=== PATIENT | female | born 1945 | race Caucasian/White ===

== ENCOUNTER 2021-03-05 15:25 | Emergency (ER) | payer OTHER ==
[~2021-03-05] VITALS: Ht 162.6 cm; Wt 101.2 kg
[2021-03-05 15:57] LABS: HEMOGLOBIN 13.3 gm/dL (12.0-15.0); MCH 27.1 pg (26.0-34.0); MCHC 32.4 g/dL (28.0-37.0); MCV 83.5 fL (80.0-100.0); RBC 4.91 mil/uL (4.20-5.00); RDW 14.6 % (10.5-14.5); WBC 10.2 thou/uL (4.0-11.0)
[2021-03-05 16:20] LABS: CALCIUM 9.8 mg/dL (8.5-10.1); CREATININE 1.3 mg/dL (0.6-1.0)
[2021-03-05 16:26] LABS: ALBUMIN 2.9 g/dL (3.4-5.0); TOTAL BILIRUBIN 0.3 mg/dL (0.2-1.0); TOTAL PROTEIN 8.1 g/dL (6.4-8.2)
[2021-03-05 18:19] LABS: URINE BILIRUBIN NEGATIVE (Negative); URINE BLOOD NEGATIVE (Negative); URINE CLARITY SL CLOUDY; URINE COLOR YELLOW; URINE GLUCOSE-RANDOM* NEGATIVE (Negative); URINE KETONES NEGATIVE (Negative); URINE NITRITE-REFLEX NEGATIVE (Negative); URINE PROTEIN (DIPSTICK) NEGATIVE (Negative); URINE UROBILINOGEN 0.2 E.U./dl (0.2-1.0)
[2021-03-05 18:35] LABS: AMP/METHAMP Negative (Negative); BARBITURATES Negative (Negative); BENZODIAZEPINES Negative (Negative); COCAINE Negative (Negative); METHADONE Negative (Negative); OPIATES POSITIVE (Negative); PCP Negative (Negative)
[2021-03-05 18:39] LABS: URINE LEUKOCYTES-REFLEX 2+ (Negative)
[2021-03-05 18:53] LABS: CASTS None Seen /LPF (None Seen); HYALINE CASTS 0-3 Few /LPF (None Seen); SQUAMOUS 0-3 Few /LPF (0-3); URINE RBC 1-2 Rare /HPF (NONE SEEN)
[2021-03-05 18:54] LABS: BACTERIA-REFLEX >30 Many /HPF (None Seen); CRYSTALS None Seen /LPF (None Seen)
[2021-03-05] MEDS ORDERED: ASPERCREME1 EACH TOP (19:22)
[2021-03-05] MEDS ORDERED: PROBIOTIC1 EAC7 PO (19:22)
[2021-03-05] MEDS ORDERED: ASA81BEC PO (19:22)
[2021-03-05] MEDS ORDERED: BIOFREEZE118 ML TOP (19:23)
[2021-03-05] MEDS ORDERED: LASIX 40 MG TAB40 MG PO (19:24)
[2021-03-05] MEDS ORDERED: FAMOTIDINE 20 M20 MG PO (19:24)
[2021-03-05] MEDS ORDERED: CALCIUM-VITAMI1 EACH PO (19:24)
[2021-03-05] MEDS ORDERED: FLONASE 0.05%50 MCG NARES (19:24)
[2021-03-05] MEDS ORDERED: NORCO 10-325 T1 EACH PO (19:25)
[2021-03-05] MEDS ORDERED: NIZORAL A-D125 ML TOP (19:25)
[2021-03-05] MEDS ORDERED: NEURONTIN 300M300 M2 PO (19:25)
[2021-03-05] MEDS ORDERED: LEVEMIR100 UNIT/1 SUBQ (19:26)
[2021-03-05] MEDS ORDERED: MAGNESIUM400 MG PO (19:26)
[2021-03-05] MEDS ORDERED: TOPROL XL25 MG PO (19:27)
[2021-03-05] MEDS ORDERED: METFORMIN HCL500 M3 PO (19:27)
[2021-03-05] MEDS ORDERED: MAPAP325 MG PO (19:27)
[2021-03-05] MEDS ORDERED: NAC600 MG PO (19:28)
[2021-03-05] MEDS ORDERED: NATEGLINIDE120 MG PO (19:28)
[2021-03-05] MEDS ORDERED: MOMETASONE FUROA1 GM TOP (19:28)
[2021-03-05] MEDS ORDERED: EFFER-K 20 MEQ20 ME1 PO (19:29)
[2021-03-05] MEDS ORDERED: PROAIR HFA8.5 GM INH (19:29)
[2021-03-05] MEDS ORDERED: PATADAY2.5 ML EA. EYE (19:29)
[2021-03-05] MEDS ORDERED: SENNA8.6 MG PO (19:29)
[2021-03-05] MEDS ORDERED: VENLAFAXINE HCL25 MG PO (19:30)
[2021-03-05 20:44] VITALS: BP 137/71
[2021-03-06] MEDS ORDERED: VENLAFAXINE H37.5 MG PO (00:37)
[2021-03-06] MEDS ORDERED: VENLAFAXINE HCL75 MG PO (00:37)
[2021-03-06] MEDS ORDERED: ASPERCREME LIDO73 ML TOP ×2 (01:02→01:03)
[2021-03-06] MEDS ORDERED: CALCIUM 600 +1 EAC7 PO (01:06)
[2021-03-06] MEDS ORDERED: FLONASE 0.05%50 MCG NASAL (01:07)
[2021-03-06] MEDS ORDERED: ACETAMINOPHEN650 M5 PO (01:15)
[2021-03-06] MEDS ORDERED: KLOR-CON M2020 MEQ PO (01:20)
--- NOTE | 2021-03-06 07:10 | EKG ---
[facility] [place] [address] ELECTROCARDIOGRAM REPORT Name: CELENA REYES [id number] Admission: 03/05/21 Attend Phys: Discharge: 03/05/21 Date of : 47 Report #: [id number] [facility] ED Test Date: 2021-03-05 Test Time: 16:17:19 Pat Name: CELENA REYES Department: Room: Gender: F Right Of Way Manager: STEPHANIE : 1945 Requested By: David Carter Order Number: [id number] MD: Ethan Mustafa Measurements Intervals [place] Rate: 79 P: 5 TX: 157 QRS: -33 QRSD: 92 T: 31 QT: 368 QTc: 422 Interpretive Statements Sinus rhythm Low voltage, precordial leads Probable left ventricular hypertrophy Anterior Q waves, possibly due to LVH No previous ECG available for comparison Electronically Signed On 03-06-2021 7:10:23 COMPLEX CARE NURSE by Ethan Mustafa [email or web address] <ELECTRONICALLY SIGNED> By: Ethan Mustafa MD, [facility] 03/06/21 0710 1617 1617 Ethan Mustafa MD, FACC /EPI
== END 2021-03-05 20:49 ==
LOC: ER 15:25
PROVIDERS: Emergency Medicine
DX: F91.9 Conduct disorder, unspecified (principal); Z20.822 Contact with and (suspected) exposure to COVID-19; N39.0 Urinary tract infection, site not specified; Z79.82 Long term (current) use of aspirin; Z79.4 Long term (current) use of insulin; Z79.51 Long term (current) use of inhaled steroids; Z79.1 Long term (current) use of non-steroidal anti-inflammatories (NSAID); Z79.891 Long term (current) use of opiate analgesic; Z79.899 Other long term (current) drug therapy

== ENCOUNTER 2021-03-05 16:29 | Inpatient (IN) | payer OTHER ==
[~2021-03-05] VITALS: Ht 162.6 cm; Wt 229.4 kg
--- NOTE | ~2021-03-05 | D ---
[facility] [place] [address] [address] DISCHARGE SUMMARY Name: CELENA REYES Room #: 526B-B DIS IN M.R.#: [id number] Admission: 03/05/21 Attend Phys: Chuck Heaton DO Discharge: 03/11/21 Date of : 47 Report #: [id number] THIS REPORT FOR: cc: MICHELLE - Family physician unknown FAM - Family physician unknown Chuck Heaton DO ~ DATE OF SERVICE: 03/11/2021 INPATIENT PSYCHIATRIC DISCHARGE SUMMARY ATTENDING PSYCHIATRIST: Chuck Heaton DO PAINTING DEPARTMENT SUPERVISOR: Chuck Atwood MD DISCHARGE DIAGNOSES: Unspecified psychosis, resolved, probably due to Escherichia coli ESBL urinary tract infection. Major depressive disorder, unspecified, on low-dose venlafaxine b.i.d. Medical comorbidities include ____ UTI, low TSH, normal free T3, free T4, euthyroid sick syndrome, recommendations to periodically monitor TSH, CKD, baseline creatinine 1.3, hypertension, hyperlipidemia, history of congestive heart failure, lower extremity lymphedema, diabetes mellitus type 2 on Lantus, chronic pain syndrome, morbid obesity. The patient is discharging to [facility] in [place], [place]. Psychiatric and medical care per receiving facility. Recommend diabetic 1800 calorie diet. Ambulates with walker. Blood glucoses twice daily. ACTIVITY LEVEL: As tolerated. DISCHARGE MEDICATIONS: Medications prescribed at discharge, which I went over with staff in nursing facility: Aspirin 81 mg oral daily for heart protection, famotidine 10 mg oral twice daily for gastroesophageal reflux disease, Lasix 40 mg oral daily for edema and mild congestive heart failure, gabapentin 300 mg oral 3 times a day for neuropathic pain, Levemir or Lantus 8 units subcutaneous at bedtime, metoprolol succinate 12.5 mg oral daily for heart rate and blood pressure, albuterol sulfate ____ grams HFA 2 puffs inhalation q. 6 hours p.r.n. for wheezing, senna 8.6 mg oral daily for constipation, calcium carbonate with vitamin D3 one tablet oral daily for supplementation, Flonase 1 spray each nostril twice daily, amoxicillin-clavulanate 875-125 one tablet oral twice daily for 7 more days for ESBL E. coli infection, venlafaxine 25 mg oral twice daily for history of depression, magnesium oxide 40 mg oral daily for supplementation, lactobacillus acidophilus 2 tablets oral daily at 0900 ____ antibiotic for bowel health. LABORATORY DATA: Significant laboratories on this admission. Hematology: White count 10.2, H and H of 13.3 and 41.0, platelet count 325. Chemistry: Sodium 138, potassium 3.4, chloride 99, bicarbonate 26, anion gap 13, BUN 19, [address] [address] DISCHARGE SUMMARY Name: CELENA REYES Room #: 526B-B DIS IN M.R.#: [id number] Admission: 03/05/21 Attend Phys: Chuck Heaton DO Discharge: 03/11/21 Date of : 47 Report #: [id number] creatinine 1.1. This is 03/06 labs. Estimated GFR 49, glucose 125. A1c 6.4, calcium 9.8, total bilirubin 0.3, AST 20, ALT 29, alkaline phosphatase 72, total protein 8.1, albumin 2.8. Serum appearance is clear. Triglycerides 151, cholesterol 228, LDL 163, HDL 35. TSH low at 0.245. Free T4 of 1.4, free T3 of 3.08. Urinalysis had multiple positives including bacteria, hyaline casts, white blood cell count, leukocyte esterase of 2+ and coarse bacteria. Toxicology positive for opiates. COVID-19 serology was negative on the , and by PCR. Microbiology showed ESBL E. coli that was sensitive to Augmentin, which she is treated with during the stay and will be continued at discharge. Her initial day of treatment in the hospital was from the , so she should get 10 days total. REASON FOR ADMISSION: Back on 03/05, a 75-year-old obese female sent out from ____ [facility] in [place]. Apparently, she was having hallucinations regarding seeing her who had a few years ago, recently worsened on 02/26. She was switched from Haldol to Seroquel, still seeing worms and bugs and rodents at times. HOSPITAL COURSE: The patient was admitted to Geriatric Psychiatry Unit. She was started on Risperdal 0.5 t.i.d. It was reduced later to 0.5 b.i.d. Psychosis rapidly improved. The patient had no specific concerns, a bit reclusive to room without suicidal or homicidal, on day of discharge felt to be stable. PHYSICAL EXAMINATION: VITAL SIGNS: Temperature 36.2, pulse 82, respirations ____, BP ____, O2 sat 95%. MUSCULOSKELETAL: Assisted gait, kyphotic station, large habitus female. MENTAL STATUS EXAMINATION: This is a well-developed, somewhat ill-appearing female appearing older than stated age. Attention fair. Concentration limited. Speech normal in rate and tone. Thought process: Linear and goal directed. Thought content, focused on discharge. Denied suicidal or homicidal ideation, denied auditory or visual type hallucinations. Mood okay. Affect, congruent, euthymic, fair range. Insight and judgment fair. Fund of knowledge average. It should be noted I did speak with her son during the admission. He is aware of the long-term care needs. PROGNOSIS: For this patient is guarded given age of 75 and numerous medical comorbidities. She should have psychiatric followup with assisted. By: 10 00 Chuck Heaton, DO /nt
[2021-03-05] MEDS ORDERED: ASPERCREME1 EACH TOP (19:22)
[2021-03-05] MEDS ORDERED: PROBIOTIC1 EAC7 PO (19:22)
[2021-03-05] MEDS ORDERED: ASA81BEC PO (19:22)
[2021-03-05] MEDS ORDERED: BIOFREEZE118 ML TOP (19:23)
[2021-03-05] MEDS ORDERED: LASIX 40 MG TAB40 MG PO (19:24)
[2021-03-05] MEDS ORDERED: FLONASE 0.05%50 MCG NARES (19:24)
[2021-03-05] MEDS ORDERED: FAMOTIDINE 20 M20 MG PO (19:24)
[2021-03-05] MEDS ORDERED: CALCIUM-VITAMI1 EACH PO (19:24)
[2021-03-05] MEDS ORDERED: NORCO 10-325 T1 EACH PO (19:25)
[2021-03-05] MEDS ORDERED: NEURONTIN 300M300 M2 PO (19:25)
[2021-03-05] MEDS ORDERED: NIZORAL A-D125 ML TOP (19:25)
[2021-03-05] MEDS ORDERED: MAGNESIUM400 MG PO (19:26)
[2021-03-05] MEDS ORDERED: LEVEMIR100 UNIT/1 SUBQ (19:26)
[2021-03-05] MEDS ORDERED: METFORMIN HCL500 M3 PO (19:27)
[2021-03-05] MEDS ORDERED: MAPAP325 MG PO (19:27)
[2021-03-05] MEDS ORDERED: TOPROL XL25 MG PO (19:27)
[2021-03-05] MEDS ORDERED: NAC600 MG PO (19:28)
[2021-03-05] MEDS ORDERED: MOMETASONE FUROA1 GM TOP (19:28)
[2021-03-05] MEDS ORDERED: NATEGLINIDE120 MG PO (19:28)
[2021-03-05] MEDS ORDERED: EFFER-K 20 MEQ20 ME1 PO (19:29)
[2021-03-05] MEDS ORDERED: PROAIR HFA8.5 GM INH (19:29)
[2021-03-05] MEDS ORDERED: PATADAY2.5 ML EA. EYE (19:29)
[2021-03-05] MEDS ORDERED: SENNA8.6 MG PO (19:29)
[2021-03-05] MEDS ORDERED: VENLAFAXINE HCL25 MG PO (19:30)
[2021-03-06] MEDS ORDERED: VENLAFAXINE H37.5 MG PO (00:37)
[2021-03-06] MEDS ORDERED: VENLAFAXINE HCL75 MG PO (00:37)
--- NOTE | 2021-03-06 00:59 | NUR ---
Arrived on the [facility] floor in a W/C from [facility] @ 21:10 accompanied by x1 staff. Transferred to Bed 518B. Able to stand and pivot from W/C to bed with x1-2 assist. VS 99/60 80 18 97.1 98% SpO2 on room air. Weight 222.5 lbs and 5'4"height. FSBS 142. DNR and supporting documentation in chart. Ambulated to the toilet with x2 assist and was continent of urine. Wearing a brief which was dry upon toileting. Bruise on Left arm which she reports she fell out of bed 2 days ago at her facility. Bruise on the right hand which patient reports is from a lab draw. Small round red skin blemish on the forehead that patient reports is a skin growth that she has had and is not an injury. large bruise on her left forearm the length of the forearm that patient identifies as secondary to her fall 2 days ago. Also faded bruises on lower extremities bilat. A&Ox3, pleasant affect. Denies mental health history, however reports that she has experienced depression after the of her mother who passed in 2008, her who passed 5 years ago in 2015, and recently after a sister passed in January of 2021. Denies family history of Suicide, Denies personal suicide ideation, or homicidal ideation. Patient reports seeing pet cats (2) and one pet dog who are . Also sees bugs and spiders, both tactile hallucinations feeling them on her skin, in her nose, eyes and ears and seeing them in front of her.
[2021-03-06] MEDS ORDERED: ASPERCREME LIDO73 ML TOP ×2 (01:02→01:03)
[2021-03-06] MEDS ORDERED: CALCIUM 600 +1 EAC7 PO (01:06)
[2021-03-06] MEDS ORDERED: FLONASE 0.05%50 MCG NASAL (01:07)
[2021-03-06] MEDS ORDERED: ACETAMINOPHEN650 M5 PO (01:15)
[2021-03-06] MEDS ORDERED: KLOR-CON M2020 MEQ PO (01:20)
[2021-03-06 06:09] LABS: CHOLESTEROL 228 mg/dL (<200); HDL CHOLESTEROL 35 mg/dL (>40); LDL CHOLESTEROL 163 mg/dL (<100); TC:HDL 6.5 Ratio (Not establshd); TRIGLYCERIDE 151 mg/dL (<150); VLDL 30 mg/dL (<40)
[2021-03-06 06:14] LABS: SERUM ASSESSMENT Clear
[2021-03-06 07:17] LABS: CALCIUM 9.8 mg/dL (8.5-10.1); CREATININE 1.1 mg/dL (0.6-1.0); POTASSIUM 3.4 mmol/L (3.5-5.1)
--- NOTE | 2021-03-06 07:58 | NUR ---
03/06/21 6730 SPOKE TO SON, BOWEN REYES [phone] AND GAVE HIM THE CONFIDENTIAL CODE FOR HIS MOM. HE IS HER DPOA, PATIENT SIGNED HERSELF IN AND HE AGREED THAT THIS IS ACCPETABLE.
--- NOTE | 2021-03-06 09:22 | NUR ---
Nutrition: New admit [facility] with unspecified psychosis. Suffers from hallucinations. PMH: GERD, HTN, depression, CHF, DM2, HLD. BG 142. Chol 228, Triglycerides 151. New admit, intake records not available yet. No weight hx. BMI 38, obesity class 2. REC add heart healthy to diet order if po intakes > 75% of meals. Follow PO trends but place as low nutrition risk.
--- NOTE | 2021-03-06 14:47 | NUR ---
IN ROOM EATING BREAKFAST ON INITIAL APPROACH THIS AM-REPORTS POOR SLEEP LAST PM C/O HEARING BANGING FROM BACK DOOR CLOSING THROUGHOUT NIGHT. DESCRIBES MOOD "EXHAUSTED" AND DOES ENDORSE S/S OF DEPRESSION INCLUDING HOPLESSNESS,DECREASED MOTIVATION AND ENERGY AND ANHEDONIA.DENIES SI/SH/HI. DENIES VISUAL HALLUCINATIONS SO FAR THIS AM-BUT STATES "THEY GET WORSE AT NIGHT"DOES REPORT PAIN TO LEFT ANKLE LOWER EXTREMETY WHICH SHE IDENTIFIES SITE OF CHRONIC PAIN BUT HAS GOTTEN WORSE SINCE FALL ON LEFT SIDE SAT. RATES PAIN CURRENTLY A 4 OR 5TATING "IT GETS WORSE THE DAY GOES N TOO" REFUSES SCHEDULED TYLENOL 325 STAT[address] "MY DR HAD ME ON A PAIN PILL THREE TIMES A DAY AT THE ASSISTED LIVING-IT WAS WORKING REAL GOOD"UNABLE TO STATW NAME OF THIS MEDCINE "THE NURSES HELP ME WITH ALL OF THAT"WHEN
--- NOTE | 2021-03-06 15:00 | NUR ---
cont. CURRENT MEDS REVIWED WITH PT IDS NORCO PAIN MED GIVEN TID AT FACILITY AND IS REQUESTING THIS WITH AM MEDS-NORCO 10 GTVEN PO PRN AT 0900-IS NOTED TO HAVE LARGE BRUISE TO LEFT SHOULDER/FOREARM AND SLIGHT BRUISING TO LEFT CRISPIN-ANKLE NOTED RO SWOLLEN AND TENDER TO TOUCH. ASSISTED TO BR ROLLER WALKER AND SBA X1, DID RATE LEFT ANKLE OAIN A 0 UPON REASSEEMENT AT 1000.
[2021-03-06 19:41] VITALS: BP 115/53
--- NOTE | 2021-03-06 22:43 | NUR ---
At onset of shift boss pt was resting in bed awake. This shift pt was alert and oriented x4. Pt was compliant with medication and vital signs. Pt complained of pain in her feet and knees; recieved PRN hydrocodone at 2237. Affect was broad. Pt denied SI, HI, depression and anxiety. Pt stated she is in the hospital to have some medications removed from her list and because she has been seeing things. Pt denied having hallucinations today or this evening. Pt is a 2 person assist. Fall precautions are in place. Will continue to monitor.
[2021-03-07 01:06] LABS: GLYCOHEMOGLOBIN (HGB A1C) 6.4 % (4.8-5.6)
[2021-03-07 09:33] VITALS: BP 109/61
--- NOTE | 2021-03-07 12:22 | NUR ---
PATIENT CARE ASSUMED AT 0700, YAZMINNET IS ALERT AND ORIENTED X3, PATIENT LAYING IN BED AWAKE, CALM AND COOPERATIVE WITH CARE, PATIENT TOOK MEDICATION WHOLE, ACTIVE BOWEL SOFT WITH SOFT ABDOMEN, LUNG CLEAR, EDEMA NOTED AT LEG, SKIN INTACT, PATIENT IS A ONE TO TWO ASSIST, SHE COMPLAINED OF PAIN AND PRN MEDICATION WAS GIVEN, SHE IS ABLE TO VERBALIZE NEEDS, FALL PRECAUTION IN [place] DENIES SI/HI, PATIENT REMAIN IN THE ROOM ND DIDN'T WANT TO ATTEND OR SIT IN THE COMMON AREA, WILL CONTINUE TO MONITOR PATIENT FOR SAFETY. .
[2021-03-07 19:27] VITALS: BP 96/66
--- NOTE | 2021-03-07 20:50 | H ---
[facility] [place] [address] [address] HISTORY AND PHYSICAL Name: CELENA REYES Room #: 518B-B ADM IN M.R.#: [id number] Admission: 03/05/21 Attend Phys: Chuck Heaton DO Discharge: Date of : 47 Report #: [id number] THIS REPORT FOR: cc: FAM - Family physician unknown FAM - Family physician unknown Chuck Heaton DO ~ DATE OF SERVICE: 03/06/2021 INPATIENT PSYCHIATRIC EVALUATION ATTENDING PSYCHIATRIST: Chuck Heaton DO FIRER PORTABLE BOILER: Chuck Atwood MD REASON FOR ADMISSION: Tactile visual hallucinations; seeing bugs, spiders, worms on skin; seeing kittens, pets. SOURCES OF INFORMATION: Records from [facility] where the patient resides, Emergency Room records, interview with the patient. HISTORY OF PRESENT ILLNESS: A 75-year-old obese female, resident at [facility] in [place], [place]. The patient had some hallucinations starting when her a few years ago, but recently worsened on 02/27. Haldol was discontinued and started on Seroquel and then got sick to something, discontinued the , nothing else restarted, seems better, but is still seeing worms but not as bad. The patient appears to have seasonal allergies. She had a weight loss from 304 to 222, lost weight on purpose, has type 2 diabetes, reports depression in the past on 01/25/2021, lost a sister. Primary care physician she has. The patient herself reports that she has been experiencing auditory, visual, and tactile hallucination. She states she has been seeing seeing worms and bugs come in and out of her mouth and feeling like she is being pricked with needles. She stated that she has been experiencing these hallucinations for a while now, but now they have gotten worse. She reports that this is making her feel very depressed. PAST PSYCHIATRIC HISTORY: Denies past hospitalizations. Reports she used to take some medications to help with hallucinations, but she stopped taking these medications sometimes back. She does not recall specific medications. She denies history of substance abuse. Denies history of alcohol use. Reports smoking in the past from age [age]. FAMILY HISTORY: Deferred. SURGICAL HISTORY: Appendectomy, hysterectomy. [facility] [address] [place] [address] HISTORY AND PHYSICAL Name: CELENA REYES Room #: 518B-B [facility] IN M.R.#: [id number] Admission: 03/05/21 Attend Phys: Chuck Heaton DO Discharge: Date of : 47 Report #: [id number] ALLERGIES: No known drug allergies. MEDICAL PROBLEMS: Obesity, diabetes mellitus type 2, hypertension. Couple more morbidities; hyperlipidemia, chronic pain syndrome. REVIEW OF SYSTEMS: Denied skin problems. Wears glasses. ADDITIONAL REVIEW OF SYSTEMS: From the hospitalist consultation include: CONSTITUTIONAL: Denies. HEENT: Denies. RESPIRATORY: Denies. CARDIOVASCULAR: Denies. GASTROINTESTINAL: Denies. GENITOURINARY: Denies. MUSCULOSKELETAL: Denies. SKIN: Denies. NEUROPSYCHIATRIC: Endorses as above. ENDOCRINE: Denies. HEME/LYMPHATIC: Denies. LABORATORY DATA: From admission, hematology normal at 13.3 and 41.0 H and H. White count 10.8, platelet count 325. Electrolytes: Sodium 138, potassium 3.4, chloride 99, bicarbonate 26, anion gap 13, BUN 19, creatinine 1.1, estimated GFR 49, glucose ranging 122-125, calcium 9.8, total bilirubin 0.3, AST 28, ALT 21, alkaline phosphatase 72, total protein 8.1. Serum albumin 2.9 indicating malnourishment. Triglycerides 151, cholesterol 228, LDL 163. TSH 0.245. I have asked Dr. Atwood to address this concern of hypothyroidism. Leukocyte esterase 2+, white blood cell count 16-25, bacteria greater than 30. She has been treated for UTI but culture was not triggered. SARS-CoV-2 negative on 03/05. CURRENT MEDICATIONS: In the hospital, started on risperidone 0.5 mg t.i.d. already, Venlafaxine 25 mg p.o. b.i.d., senna 8.6 mg daily, metoprolol succinate 12.5 mg oral daily, magnesium oxide 400 mg oral daily, lactobacillus 2 capsules daily, gabapentin 300 mg t.i.d., Lasix 40 mg daily, Flonase nasal daily, famotidine 10 mg oral b.i.d., cephalexin 500 mg p.o. b.i.d. with a 10-day dosing. Calcium with vitamin D 1 tab daily, aspirin 81 mg oral daily, Lantus 8 units at bedtime, albuterol q. 6 hours p.r.n. nebulizer; hydrocodone bitartrate is ordered, I will go ahead and discontinue that given it being a narcotic. PHYSICAL EXAMINATION: VITAL SIGNS: Today, BP 136/82. It is unclear why there are not any other vital signs recorded. GENERAL: obese, well developed, ill-appearing female. [facility] [address] [facility] [place] [address] HISTORY AND PHYSICAL Name: CELENA REYES Room #: 518B-B ADM IN M.R.#: [id number] Admission: 03/05/21 Attend Phys: Chuck Heaton DO Discharge: Date of : 47 Report #: [id number] MENTAL STATUS EXAMINATION: Attention limited. Concentration limited. Speech normal rate, volume, and tone. Thought process, linear and goal directed. Thought content, focused on present. mood/affect"ok" congruent euthymic Denied SI, HI. Recent hallucinations, but denied currently. Memory not formally tested. Insight limited. Judgment limited. Fund of knowledge average range. FORMULATION: A 75-year-old obese female sent out from [facility] for hallucinations. DIAGNOSIS: Unspecified psychosis, rule out major neurocognitive disorder. Multiple morbidities obesity, diabetes including. PLAN: Admit to [facility], consult hospitalist, start risperidone 0.5 mg oral 3 times a day for psychosis. We will see how she responds in the next several days. STRENGTHS: Insured, has a placement. WEAKNESSES: Advanced age, multiple morbidities. It looks like her sonAlex is a contact point. <ELECTRONICALLY SIGNED> By: Chuck Heaton DO 03/07/212049 160 165 Chuck Heaton DO /nt
--- NOTE | 2021-03-08 00:06 | NUR ---
At onset of shift pt was sitting in her room talking on the phone. This shift pt was alert and oriented x4. Pt was calm, pleasant and cooperative. Pt was not social with peers, but was social with staff. Pt was cooperative with meds and vital signs. Pt requested pain medication and recieved hydrocodone at bed time. Pt denied SI, HI and AVH. Affect was broad. Pt ambulates with staff standing by. Fall precautions are in place. Pt complained of a cough and sore throat. RN did not observe pt coughing or exhibiting covid symptoms. Pt has a COVID PCR scheduled for 03/08/21 at 0500. Pt recieved an order for COVIC PCR stat on pt to be run at 0000 on 03/08/21.
[2021-03-08 07:00] VITALS: BP 134/74
--- NOTE | 2021-03-08 12:49 | NUR ---
CARE OF PATIENT ASSUMED AT 0700, PATIENT ALERT AND ORIENTED X3, PATIENT LAYING IN BED WITH EYES OPENED, PATIENT IS CALM, PLEASANT WITH CARE, ASSESSMENT COMPLETED WITH CLEAR LUNGS, ACTIVE BOWEL SOUND WITH SOFT ABDOMEN, SKIN INTACT, SOME EDEMA IN BOTH LEGS, PATIENT TOOK HER MEDICATION WHOLE WITHOUT ANY PROBLEM, PATIENT AMBULATE WITH A WALKER, FALL PRECAUTION IN PLACE, PATIENT DENIES SI/HI, PATIENT IS ABLE TO VERBALIZE NEEDS, WILL CONTINUE TO MONITOR PATIENT FOR SAFETY.
--- NOTE | 2021-03-08 17:01 | NUR ---
DEEP attempted to contact the DON and admissions at [facility]. DEEP left a message requesting a call back. As of this note DEEP has not recieved a call. DEEP unable to set up discharge. DEEP did fax updates to the facility. DEEP will follow up withthe facility on Thursday concerning discharge.
[2021-03-08 20:56] VITALS: BP 101/63
--- NOTE | 2021-03-09 00:35 | NUR ---
At onset of shift mechanic pt was sitting in dada chair in room awake. This shift pt was alert and oriented x4. Pt was up ad chavo with a walker. Pt was calm, pleasant and cooperative with broad affect. Pt was compliant with medication and vital signs. Pt stated she is looking forward to going home on Thursday. Pt was not social with peers in the evening but was social with RN. Pt talked about books she likes to read and how she used to play basketball. Fall precautions are in place. Will continue to monitor.
[2021-03-09 10:51] VITALS: BP 120/70
--- NOTE | 2021-03-09 17:17 | NUR ---
Assumed pt care at 0700. Pt was alert and oriented x4. Assessments completed, vss. Took meds whole in applesauce, no difficulty noted. Denies si/hi. C/O pain. schedule tylenol administered. Calm and cooperative with care. Ambulates with a Leida chair. Fall precaution in place. pt was happy upon assessments. pt talked about getting d/c Thursday. Active bowel sound. No sign of acute distress noted upon assessments. At this time pt is eating in her room. will continue to monitor.
[2021-03-09 20:41] VITALS: BP 146/83
--- NOTE | 2021-03-10 05:46 | NUR ---
PATIENT AOX4 MAKES NEEDS KNOWN. PATIENT AMBULATE IN THE ROOM AND IN THE HALLWAY WITH STEADY GAITS. PATIENT HAS A FLAT AFFECT, POOR EYE CONTACT, FAIR GROOMING AND HYGIENE. PATIENT ENCOURAGED FLUIDS. COVID TEST DONE PER DR. SHEPPARD. PATIENT ISOLATIVE THIS SHIFT. FALL PRECAUTION IN PLACE. PATIENT IN BED ASLEEP AT THIS TIME BREATHING REGULAR AND UNLABOURED.
[2021-03-10 10:00] VITALS: BP 140/70
--- NOTE | 2021-03-10 11:14 | NUR ---
Faxed updates to [facility]
--- NOTE | 2021-03-10 13:19 | NUR ---
Assumed pt care at 0700. Pt was alert and oriented x4. Assessments completed, vss. Took meds whole, in apple sauce, no difficulty noted. Ambulates with a walker. Pt is a moderate assist with care. Makes needs known to staff. Continent of bowel and bladder at this time. Pt is a fall risk, Fall precaution in place. Denies si/hi. Calm and cooperative with care. At this time pt is sitting in a recliner in her room. Will continue to monitor.
[2021-03-10 19:23] VITALS: BP 117/62
--- NOTE | 2021-03-11 02:08 | NUR ---
PATIENT CARE WAS RESUMED AT 1900. SHE IS ALERT AND ORIENTED X4. SITTING IN A RECLINER IN HER ROOM READING A BOOK. SHE AMBULATES WITH WALKER AND ABLE TO VERBALIZE HER NEEDS. SHE USES AN MABRY TO ALERT THE NURSES.SHE IS A MODERATE ASSIST WITH CARE. CONTINENT OF BOWEL AND BLADDER. SHE DENIES AVH/SI/HI. PRN TYLENOL GIVEN FOR PAINS WITH SOME GOOD EFFECT.LUNGS ARE CLEAR BS ACTIVE X 4 QUADS. CONTINUE CARE
[2021-03-11 10:41] VITALS: BP 136/74
[2021-03-11 11:52] VITALS: BP 136/74
[2021-03-11] MEDS ORDERED: AMOX TR-K CLV1 EAC4 PO (12:59)
[2021-03-11] MEDS ORDERED: VENLAFAXINE HCL50 MG PO (13:01)
[2021-03-11] MEDS ORDERED: MAGNESIUM400 MG PO (13:02)
[2021-03-11] MEDS ORDERED: ACIDOPHILUS1 EAC4 PO (13:02)
--- NOTE | 2021-03-11 13:05 | NUR ---
RESUMMED CARE FROM OVERNIGHT SHIFT THIS AM, PATIENT ALERT ORIENTED TIMES 4. PATIENT ATE BREAKFAST TOOK MEDICATION WITHOUT INCIDENCE, PATIENT DENIES SI/HI/AH/VH AT PRESENT. PATIENTS ABDOMEN SOFT BOWEL SOUNDS PRESENT, PATIENTS LUNGS CLEAR. PATIENT HAS NOT DISPLAYED ANY BEHAVIORS, PATIENT IS DISCHARGING TODAY. TO [facility] DISCHARGE INSTRUCTIONS, BELONGINGS SENT WITH PATIENT. REPORT CALLED TO FACILITY. WILL CONTINUE TO MONITOR PATIENT FOR SAFETY AND BEHAVIORS UNTIL DISCHARGE TIME.
--- NOTE | 2021-03-11 14:53 | NUR ---
1100 DEEP was able to speak with Keesha at [facility] concerning discharge. They are able to take the Pt today. Discharge was set for 03/11/2021 @ 1400. 1115 DEEP set up transportation with [facility]
== END 2021-03-11 14:16 | DRG 885 ==
LOC: SBH
PROVIDERS: Nurse Practitioner Family; ADMIT Psychiatry & Neurology Psychiatry; ATTEND Psychiatry & Neurology Psychiatry
DX: F29 Unspecified psychosis not due to a substance or known physiological condition (principal); N17.9 Acute kidney failure, unspecified; N18.9 Chronic kidney disease, unspecified; N39.0 Urinary tract infection, site not specified; I13.0 Hypertensive heart and chronic kidney disease with heart failure and stage 1 through stage 4 chronic kidney disease, or unspecified chronic kidney disease; Z68.45 Body mass index [BMI] 70 or greater, adult; I50.9 Heart failure, unspecified; G89.4 Chronic pain syndrome; Z20.822 Contact with and (suspected) exposure to COVID-19; F32.9 Major depressive disorder, single episode, unspecified; B96.89 Other specified bacterial agents as the cause of diseases classified elsewhere; E11.22 Type 2 diabetes mellitus with diabetic chronic kidney disease; Z79.4 Long term (current) use of insulin; E78.5 Hyperlipidemia, unspecified; E66.01 Morbid (severe) obesity due to excess calories; Z66 Do not resuscitate
CPT/HCPCS: 10880